=== PATIENT | male | born 1965 | race Caucasian/White ===

== ENCOUNTER 2017-06-16 05:22 | Inpatient (IN) | payer OTHER ==
[~2017-06-16] VITALS: Ht 177.8 cm; Wt 100.0 kg
--- NOTE | ~2017-06-16 | HP ---
Unit #: [id number] #: [id number] Patient: FARIBA LIU [id number] [address] [place], [place] [address] [id number] I MR#: [id number] NAME: FARIBA LIU ROOM: 323 Age: 52 Sex: M Admission Date: 06/16/2017 : 1965 Attending Physician: Donna Bertrand M.D. Primary Care Physician: Marcello Bermudez M.D. HISTORY AND PHYSICAL REASON FOR ADMISSION Intentional overdose/suicidal ideation. HISTORY OF PRESENT ILLNESS Patient is a very pleasant 52-year-old male who apparently off and on for the past several weeks has been fighting with his at home secondary to him not taking his medications, continuing to smoke and/or other marital reasons. He states he got fed up with it last night. He took as many medications as he could find, including lisinopril, Synthroid, Lipitor, Mirapex, Plavix, as well as carvedilol. He became obtunded, confused. There was questionable syncopal episode at home. Subsequently called EMS "services." The patient was brought to the hospital further evaluation. While patient was evaluated in the emergency room, he received normal saline, glucagon, "Zofran," activated charcoal, calcium chloride, as well as "Zofran." At the present time I am evaluating him in the ICU. He is sitting up, communicating in full sentences. He is currently on 4 liters of O2. He does not appear to be in acute distress. PAST MEDICAL HISTORY 1. Coronary artery disease with CABG September 2016 with valve replacement. Details are not available to me. 2. Hypertension. 3. Prior history of psychiatric history, I believe including anxiety/depression. 4. Hypothyroidism. 5. Hyperlipidemia. 6. Longstanding history of noncompliance. 7. Myocardial infarction x2. PAST SURGICAL HISTORY 1. Appendectomy. 2. Coronary artery bypass graft September 2016. 3. Valve replacement. 4. Tonsillectomy. HOME MEDICATIONS Lisinopril, Synthroid, Lipitor, Mirapex, Plavix, carvedilol. Although patient states that these are his routine home medications, he has only been taking them since May 30. Prior to that for several months he was not taking his medications secondary to cost issues, lack of followup, as well as patient stated he was not sure if he needed them. Unit #: [id number] #: [id number] Patient: FARIBA LIU ALLERGIES Tofranil, imipramine. FAMILY HISTORY Reviewed. Noncontributory. Not pertinent. SOCIAL HISTORY Positive tobacco use, ongoing. No alcohol use. Patient adamantly denies IV drug use. REVIEW OF SYSTEMS Please see HPI. Twelve-point, otherwise, negative except for those positively noted in the HPI. PHYSICAL EXAMINATION VITAL SIGNS: Temperature 98.2, pulse 68, respiratory rate 18, blood pressure 89/49 on admission. O2 sats 89% on room air. GENERAL APPEARANCE: Patient a 52-year-old male sitting up comfortably. No acute distress. HEAD EXAM: Atraumatic, normocephalic. EAR EXAM: Tympanic membranes do not reveal any erythema or injection. NECK EXAM: Supple. CVS: S1, S2 audible. No murmur heard. Regular rate and rhythm. RESPIRATORY EXAM: Coarse breath sounds are noted bilaterally. Prolonged expiration. Scattered wheezing. GI/ABDOMEN: Nontender, nondistended. LOWER EXTREMITY EXAM: No evidence of any lower extremity edema. NEUROLOGIC EXAM: Patient is A and O x3. No evidence of any focal nerve deficits. PSYCHIATRIC EXAM: Patient demonstrates normal mood and affect. DIAGNOSTIC STUDIES LABS: Initial laboratory studies show ABG - pH 7.427, pCO2 of 36, a pO2 of 87 on 6 liters. White count of 11.5, hemoglobin 15.7. CMP shows normal with exception of glucose at 141. Tylenol level negative. Salicylates negative. Alcohol level negative. Cardiac enzymes, first set, negative. INR 1.1. INITIAL IMPRESSION 1. Intentional overdose. 2. Suicidal ideation. 3. Acute hypoxic respiratory failure. 4. Presumed aspiration pneumonitis/pneumonia. 5. Coronary artery disease. 6. Prior history of coronary artery bypass graft September 2016. 7. Prior history of valve replacement. 8. Longstanding history of noncompliance with home medications. 9. Hypothyroidism. 10. Hypertension. 11. Hyperlipidemia. PLAN Admission. Patient has currently been admitted to ICU, but he can be downgraded to telemetry floor. Will place consultation to Dr. Smith of psychiatric services. For 24 hours will observe him here at [facility]. Will try to wean his O2 to room air, to which I believe was his baseline. He will receive IV Solu-Medrol, aerosols, as Unit #: [id number] #: [id number] Patient: FARIBA LIU well as Shean for aspiration pneumonia, as he is at high risk. His other routine medications will be placed on hold. His blood pressure was low. He did receive several normal saline boluses en route. Currently it is stable with his systolic hovering in the 100s to one-tens. He will be followed closely. He will be maintained on normal saline at 150 mL. He likely can be transferred or discharged to [facility] and/or further disposition as to be determined by Dr. Smith in the morning. All plans have been reviewed with patient in detail. He expresses understanding and agreement of plan as stated above. Dictated by Tani Cabrera/christen TD: 06/17/2017 15:19 JOB #: [id number] HISTORY AND PHYSICAL Page 1 of 1 X Donna Bertrand MD X HISTORY AND PHYSICAL
--- NOTE | ~2017-06-16 | CO ---
Unit #: [id number] #: [id number] Patient: FARIBA LIU [id number] [address] [place], [place] [address] [id number] I MR#: [id number] NAME: FARIBA LIU ROOM: 323 Age: 52 Sex: M Admission Date: 06/16/2017 : 1965 Attending Physician: Donna Bertrand M.D. Primary Care Physician: Marcello Bermudez M.D. Consultation Date: 06/17/2017 CONSULTATION REPORT REASON FOR CONSULTATION Intentional overdose. HISTORY OF PRESENT ILLNESS Mr. Smith is a 52-year-old white male, seen in room 323, bed 1, on 06/17/2017. The patient dressed in hospital attire, lying comfortably in bed. The patient admitted taking intentional overdose. Reported that he was trying to get help for a long period of time and had an argument and took overdose. The patient reported taking overdose with the intention to harm himself. The patient is currently on hold and has a sitter. The patient denied any use of drugs or alcohol. The patient has a history of depression. PAST PSYCHIATRIC HISTORY Remarkable for history of depression, but no treatment. PAST MEDICAL HISTORY History of coronary artery disease with CABG in 2016, valve replacement, hypertension, hypothyroidism, hyperlipidemia, history of noncompliance, myocardial infarction x2. MEDICATIONS The patient at home is on lisinopril, Synthroid, Lipitor, Mirapex, Plavix, carvedilol. ALLERGIES Tofranil and imipramine. FAMILY HISTORY AND SOCIAL HISTORY The patient reports that he lives with his , has a good support system, but having some marital conflict. Denied any use of any drugs or alcohol. No history of abuse. REVIEW OF SYSTEMS Complete review of systems is unremarkable except as mentioned above. PHYSICAL EXAMINATION VITAL SIGNS: Temperature 97.8, pulse 82, respirations 16, blood pressure 158/86, and oxygen saturation 99%. GENERAL APPEARANCE: The patient dressed casually in hospital attire, lying comfortably in bed. Attention span and concentration, fair. Speech, regular rate. Oriented in time, place, and person. Mood and affect, sad, dysphoric, labile. Thought process, goal directed. The patient denied any thoughts of harming self or others at this time, but Unit #: [id number] #: [id number] Patient: FARIBA LIU admitted intentional overdose, sad, depressed, labile. Denied any psychotic symptom. Recent and remote memory, fair. Language, intact. Fund of knowledge, fair. Insight and judgment, fair to slightly impaired. DIAGNOSES Psychiatric: Major depressive disorder, recurrent, severe, F33.2. Secondary diagnosis: Deferred. Medical diagnosis: Please refer to H and P. Stressors: Psychosocial stressors. ASSESSMENT/PLAN 1. Supportive psychotherapy and psychoeducation were provided to the patient. 2. Educated about benefits and side effects of medication and course and prognosis of illness. 3. Advised to continue with current treatment with a plan to transfer the patient to [facility] for inpatient psychiatric stabilization. Please feel free to call if any questions. . Dictated by... Tani Khan/ellen TD: 06/17/2017 23:49 JOB #: [id number] CONSULTATION REPORT Page 1 of 1 X Cm Smith MD X CONSULTATION REPORT
--- NOTE | ~2017-06-16 | DS ---
Unit #: [id number] #: [id number] Patient: FARIBA LIU [id number] [facility] [address]. [place], [place] [address] [id number] I MR#: [id number] NAME: FARIBA LIU ROOM: 323 Age: 52 Sex: M Admission Date: 06/16/2017 : 1965 Discharge Date: 06/17/2017 Attending Physician: Donna Bertrand M.D. Primary Care Physician: Marcello Bermudez M.D. DISCHARGE SUMMARY REASON FOR ADMISSION Medication overdose, suicidal intent. HISTORY OF PRESENT ILLNESS Patient a 52-year-old male, very pleasant, who apparently had got into a disagreement with his while at home, took several of his medications all at the same time, became suddenly obtunded. EMS "services" were subsequently called. Patient was brought to [facility] further evaluation. Initially his systolic blood pressure was found to be low. He was mildly respiratory compromised with hypoxia, as well as hypercapnia. Initially he was placed in ICU on O2 nasal cannula support, as well as aerosols. IV fluid resuscitation therapy was initiated. At this point in time his IV fluids have now been discontinued. His blood pressure is currently stable on no medications. He has received IV Solu-Medrol, as well as Zosyn, for consideration of possible aspiration. Dr. Smith was consulted secondary to evaluation. Per Dr. Smith's recommendation and/or note, patient has been recommended to be [facility] in regard to medication overdose. FINAL DISCHARGE DIAGNOSES 1. Medication overdose. 2. Acute hypercapnic/hypoxic respiratory failure on admission, now resolved. 3. Chronic obstructive pulmonary disease. 4. Hypertension. 5. Coronary artery disease with recent coronary artery bypass graft September 2016. 6. Prior history of valve replacement. Details unclear. 7. Longstanding history of noncompliance. 8. Ongoing tobacco abuse. DISCHARGE MEDICATIONS 1. Lipitor 40 mg p.o. q.h.s. 2. Lisinopril 2.5 mg p.o. daily. 3. Plavix 75 mg p.o. daily. 4. Synthroid 75 mcg p.o. daily. 5. Sublingual nitro as directed. 6. Augmentin 875 mg p.o. b.i.d. x10 days. Unit #: [id number] #: [id number] Patient: FARIBA LIU DISCHARGE CONDITION Stable. DISCHARGE DISPOSITION [facility]. Dictated by... Tani Cabrera/christen TD: 06/17/2017 15:40 JOB #: [id number] DISCHARGE SUMMARY Page 1 of 1 X Donna Bertrand MD X DISCHARGE SUMMARY
--- NOTE | ~2017-06-16 | CR72 ---
[facility] A Service of [facility] RADIOLOGY TEXT RESULTS PATIENT: FARIBA LIU LOCATION: [facility] : [birth year] UNIT #: [id number] AGE: [address]: Donna Bertrand MD SEX: M ORDER DR: [id number] [facility] [address] [place], [place] [address] [id number] MR#: [id number] Acc #: [id number] NAME: FARIBA LIU : 1965 SEX: M STUDY DATE/TIME: 06/16/2017 13:41 UNIT: [address] ROOM: [address] [place] [address] DESCRIPTION: CR Chest Single View Portable Attending Physician: Donna eBrtrand M.D. Ordering Physician: Donna Bertrand M.D. Primary Care Physician: Marcello Bermudez M.D. MEDICAL IMAGING REPORT This report is preliminary unless electronic signature is present EXAM Portable chest. HISTORY Shortness of air starting today. COMPARISON 02/06/2016 FINDINGS A portable view of the chest was obtained. The heart size and vascularity are normal and the lungs are clear. There is a transversely oriented metallic object superimposed upon the heart which might represent an atrial appendage device. There are sternotomy wires and coronary bypass markers present. IMPRESSION No active disease. Dictated by... Wilian Penny M.D. THIS IS AN ELECTRONICALLY VERIFIED REPORT Wilian Penny M.D. at 06/17/2017 12:43 PM MACO/albina TD: 06/17/2017 00:44 JOB #: [id number] MEDICAL IMAGING REPORT [facility] A Service [facility] RADIOLOGY TEXT RESULTS PATIENT: FARIBA LIU LOCATION: [facility] : [birth year] UNIT #: [id number] AGE: [address]: Donna Bertrand MD SEX: M ORDER DR: Page 1 of 1 COPY
--- NOTE | ~2017-06-16 | EKG ---
PATIENT: FARIBA LIU UNIT #: [id number] Ventricular Rate: 62 BPM Atrial Rate: 62 BPM P-R Interval: 158 ms QRS Duration: 98 ms Q-T Interval: 444 ms QTC Calculation(Bezet): 450 ms P [place]: 33 degrees Calculated R [place]: 50 degrees Calculated T [place]: 58 degrees Diagnosis Line: Diagnosis Line: Normal sinus rhythm Diagnosis Line: Normal ECG Diagnosis Line: When compared with ECG of 16-JUN-2017 05:59, Diagnosis Line: (unconfirmed) Diagnosis Line: No significant change was found Diagnosis Line: Confirmed by CORNELIA WHITING MD ([id number]) on 06/16/2017 Diagnosis Line: 7:56:07 PM INTERPRETING MD: JOHANNE HINSON
[~2017-06-16 05:22] MED LIST: ALBUTEROL17 GM INH; CATAFLAM50 MG PO; DEPAKOTE PO; DICLOFENAC PO; HYDROCODON-ACE1 EAC7 PO; ILOTYCIN OPTH; IMDUR PO; LIPITOR; LIPITOR PO; LISINOPRIL PO; LOPRESSOR PO; MAXZIDE 75/50 T1 TAB PO; NAPROXEN PO; NEURONTIN; NEURONTIN PO; PHENERGAN/CODEINE PO; PREDNISONE PO; PROZAC; PROZAC PO; TOPROL XL; WELLBUTRIN PO; ZITHROMAX PO
[2017-06-16 06:02] LABS: POC - CKMB 1.4 ng/mL (0.0-7.9); POC - TROPONIN <0.05 ng/mL (<=0.05)
[2017-06-16 06:06] LABS: BASOPHIL# 0.1 X10e3 (0-0.3); EOSINOPHIL# 0.6 X10e3 (0-0.7); EOSINOPHIL% 4.9 % (0.0-7.0); HEMATOCRIT 45.2 % (38.0-50.0); HEMOGLOBIN 15.7 gm/dL (13.0-16.0); LYMPHOCYTE# 2.9 X10e3 (1.0-3.5); LYMPHOCYTE% 25.7 % (17.0-45.0); MEAN CORPUSCULAR HEMOGLOBIN 31.6 PG (28-34); MEAN CORPUSCULAR HGB CONC 34.7 g/dL (30-36); MEAN PLATELET VOLUME 8.2 FL (6.5-11.5); MONOCYTE% 8.4 % (3.0-12.0); NEUTROPHIL# 6.9 X10e3 (1.5-7.1); PLATELET COUNT 217 X10e3 (140-420); RED BLOOD COUNT 4.97 X10e (3.90-5.60); WHITE BLOOD COUNT 11.5 X10e3 (4.0-10.5)
[2017-06-16 06:21] LABS: INR 1.1; PARTIAL THROMBOPLASTIN TIME 27.1 SECONDS (23.5-31.3); PROTHROMBIN TIME (PATIENT) 12.3 SECONDS (10.0-11.7)
[2017-06-16 06:26] LABS: ALBUMIN SERUM 4.1 g/dL (3.5-5.0); ALKALINE PHOSPHATASE 63 U/L (32-92); ALT (SGPT) 15 U/L (10-40); AST (SGOT) 20 U/L (10-42); BLOOD UREA NITROGEN 19 mg/dL (9-23); BUN/CREATININE RATIO 15.83; CALCIUM SERUM 9.8 mg/dL (8.4-10.2); CARBON DIOXIDE 24 mmol/L (22-31); CHLORIDE 106 mmol/L (100-111); CREATININE SERUM 1.2 mg/dL (0.6-1.4); GLOM FILT RATE Estimated 70.1 mL/min (>60); GLUCOSE FASTING 141 mg/dL (70-110); POTASSIUM 4.2 mmol/L (3.5-5.1); PROTEIN TOTAL SERUM 7.5 g/dL (6.0-8.3); SALICYLATE <4.0 mg/dL; SODIUM 140 mmol/L (135-145)
[2017-06-16 06:31] LABS: ACETAMINOPHEN <10 ug/mL; ALCOHOL BLOOD <5 mg/dL (0)
[2017-06-16 06:34] LABS: DIFF IND NO
[2017-06-16 09:15] LABS: ARTERIAL BLD GAS O2 SATURATION 94.8 % (90.0-100.0); ARTERIAL BLOOD GAS CARBOXY HB 2.4 %sat (0.0-9.0); ARTERIAL BLOOD GAS HCO3 24.2 mmol/L; ARTERIAL BLOOD GAS MET HB 0.5 %sat (0.0-2.0); ARTERIAL BLOOD GAS PCO2 36.8 mmHg (35.0-45.0); ARTERIAL BLOOD GAS PO2 87.1 mmHg (80.0-100); ARTERIAL BLOOD GAS pH 7.427 (7.350-7.450)
[2017-06-16 09:16] LABS: ARTERIAL BLOOD GAS ALLEN TEST NORMAL; ARTERIAL BLOOD GAS ART SITE RIGHT RADIAL; ARTERIAL BLOOD GAS DELIVERY NASAL CANNULA; ARTERIAL DRAW? YES
[2017-06-16 12:00] LABS: %MB 1.6 % (0.0-4.0); MB 1.6 ng/ml
[2017-06-16] MEDS ORDERED: COREG6.25 MG PO (13:45)
[2017-06-16] MEDS ORDERED: LEVOTHYROXINE75 MCG PO (13:46)
[2017-06-16] MEDS ORDERED: CLOPIDOGREL75 MG PO (13:46)
[2017-06-16] MEDS ORDERED: LISINOPRIL5 MG PO (13:46)
[2017-06-16] MEDS ORDERED: LIPITOR40 MG PO (13:47)
[2017-06-16] MEDS ORDERED: MIRAPEX0.125 MG PO (13:48)
[2017-06-16] MEDS ORDERED: NITROGLYGERIN0.4 MG SL (13:49)
[2017-06-16 18:14] LABS: MB 1.7 ng/ml
[2017-06-17 08:39] LABS: BUN/CREATININE RATIO 21.11; CALCIUM SERUM 8.6 mg/dL (8.4-10.2); CREATININE SERUM 0.9 mg/dL (0.6-1.4); GLOM FILT RATE Estimated 99.2 mL/min (>60); POTASSIUM 4.8 mmol/L (3.5-5.1)
[2017-06-17 16:26] LABS: AMPHETAMINE NEG (NEG); BARBITURATES NEG (NEG); BENZODIAZEPINES NEG (NEG); COCAINE NEG (NEG); MARIJUANA NEG (NEG); OPIATES NEG (NEG); TRICYCLIC ANTIDEPRESSANTS NEG (NEG); U METHADONE NEG (NEG)
[2017-06-28] MEDS ORDERED: HYDROXYZINE PAM25 M1 PO (19:58)
[2017-06-28] MEDS ORDERED: SARAFEM20 MG PO (19:58)
== END 2017-06-17 17:36 | DRG 917 ==
LOC: CED 05:22 → CEDOF 07:45 → CED 07:49 → CICCU3 07:49 → CEDOF 07:49 → CICCU3 08:54 → CEDOF 08:54 → CICCU3 08:54 → C3A PCU 14:47
PROVIDERS: Emergency Medicine; Family Medicine
DX: T46.4X2A Poisoning by angiotensin-converting-enzyme inhibitors, intentional self-harm, initial encounter (principal); J96.02 Acute respiratory failure with hypercapnia; J96.01 Acute respiratory failure with hypoxia; F33.2 Major depressive disorder, recurrent severe without psychotic features; T38.1X2A Poisoning by thyroid hormones and substitutes, intentional self-harm, initial encounter; T46.6X2A Poisoning by antihyperlipidemic and antiarteriosclerotic drugs, intentional self-harm, initial encounter; T42.8X2A Poisoning by antiparkinsonism drugs and other central muscle-tone depressants, intentional self-harm, initial encounter; T45.522A Poisoning by antithrombotic drugs, intentional self-harm, initial encounter; T44.7X2A Poisoning by beta-adrenoreceptor antagonists, intentional self-harm, initial encounter; I25.10 Atherosclerotic heart disease of native coronary artery without angina pectoris; Z95.1 Presence of aortocoronary bypass graft; E78.5 Hyperlipidemia, unspecified; E03.9 Hypothyroidism, unspecified; I25.2 Old myocardial infarction; Z91.19 Patient's noncompliance with other medical treatment and regimen; Z95.2 Presence of prosthetic heart valve; Z90.49 Acquired absence of other specified parts of digestive tract; Z91.14 Patient's other noncompliance with medication regimen; F17.200 Nicotine dependence, unspecified, uncomplicated
CPT/HCPCS: 36600; 71010; 80048; 80053; 80061; 80307; 82550; 82553; 82803; 82947; 83036; 84443; 84484; 85025; 85379; 85610; 85730; 93005; 94640; 94760; 96361; 96365; 96375; 99291; G0480; J0610; J1610; J2405; J2543; J2930

== ENCOUNTER 2017-06-17 14:10 | Inpatient (IN) | payer OTHER ==
[~2017-06-17] VITALS: Ht 177.8 cm; Wt 97.5 kg
--- NOTE | ~2017-06-17 | CO ---
Unit #: [id number] #: [id number] Patient: FARIBA LIU [id number] [place] [address] [id number] I MR#: [id number] NAME: FARIBA LIU ROOM: P258 Age: 52 Sex: M Admission Date: 06/17/2017 : 1965 Attending Physician: Cm Smith M.D. Primary Care Physician: Marcello Bermudez M.D. Consultation Date: 06/18/2017 CONSULTATION REPORT Elaine Smith is a 52-year-old who is admitted after an overdose of his home medications. We have been asked to review all of his medications and restart or discontinue as necessary. After reviewing his list of home medications, we will continue lisinopril 5 mg daily, Plavix 75 mg daily, Coreg 6.25 mg b.i.d., atorvastatin 40 mg daily, and levothyroxine 0.075 mg daily. The patient can follow up with primary care. Dictated by... Lana Leiva P.A.-C. for Tani Cabrera/ellen TD: 06/18/2017 18:56 JOB #: [id number] CONSULTATION REPORT Page 1 of 1 X Lana Leiva CONSULTATION REPORT
--- NOTE | ~2017-06-17 | HP ---
Unit #: [id number] #: [id number] Patient: FARIBA LIU [id number] [facility] [address] [place] [address] [id number] I MR#: [id number] NAME: FARIBA LIU ROOM: P258 Age: 52 Sex: M Admission Date: 06/17/2017 : 1965 Attending Physician: Cm Smith M.D. Admitting Physician: Cm Smith M.D. Primary Care Physician: Marcello Bermudez M.D. HISTORY AND PHYSICAL Fariba is a 52 year old admitted to [address] [place] [address] because of a polypharmacy overdose. He was admitted to [facility] on 06/16/17 and when medically stable transferred to [facility] for psychiatric care. Patient was seen and H and P dated 06/16/17 was reviewed. This is current. No changes. Please see H and P dated 06/16/17 from [facility]. Dictated by... Lana Leiva P.A.-C. for Tani Cabrera/sin TD: 06/18/2017 18:07 JOB #: [id number] HISTORY AND PHYSICAL Page 1 of 1 X Lana Leiva HISTORY AND PHYSICAL
--- NOTE | ~2017-06-17 | PA ---
Unit #: [id number] #: [id number] Patient: FARIBA LIU [id number] [facility] [address] [place] [address] [id number] I MR#: [id number] NAME: FARIBA LIU ROOM: [facility] Age: 52 Sex: M Admission Date: 06/17/2017 : 1965 Date of Assessment: 06/18/2017 Attending Physician: Cm Smith M.D. Admitting Physician: Cm Smith M.D. Primary Care Physician: Marcello Bermudez M.D. PSYCHIATRIC ASSESSMENT INFORMANTS The patient reliability, fair informant and chart reliability, good. CHIEF COMPLAINT Suicide attempt. HISTORY OF PRESENT ILLNESS Mr. Smith is a 52-year-old white male, presented with the above-mentioned complaint. The patient was initially admitted at [facility] after taking an overdose of his medication for hypertension. The patient was medically stabilized and transferred to [facility] for psychiatric stabilization. The patient reported that he was trying to get help for long time. Reported having marital issues. The patient reported that in the past he was on Prozac that helped him, but without that medication the patient reported feeling sad, depressed, feeling of hopelessness and worthlessness. Denied any homicidal ideation or psychotic symptom, but suicidal ideation, anxiety, and trouble sleeping. Needing inpatient admission at this time for psychiatric stabilization. PAST PSYCHIATRIC HISTORY Remarkable for history of previous treatment for depression. No history of any previous suicide attempt, but according to the intake reports history of inpatient multiple times in his 30s at [facility] for bipolar disorder. FAMILY HISTORY AND SOCIAL HISTORY The patient reports that he has a good support system with his spouse. The patient denied any family history of any psychiatric illness. No history of abuse. No history of any legal problem. MEDICAL HISTORY Remarkable for hypertension, COPD, and heart problem. MEDICATION HISTORY The patient is on Lipitor, lisinopril, Plavix, and Augmentin. ALLERGIES No known drug allergies. SUBSTANCE ABUSE HISTORY None. REVIEW OF SYSTEMS Unit #: [id number] #: [id number] Patient: FARIBA LIU HEENT: Eyes, clear. Ears, nose, mouth, and throat; clear. CARDIOVASCULAR: Unremarkable. RESPIRATORY: Unremarkable. GI: Unremarkable. : Unremarkable. SKIN: Unremarkable. LYMPH NODE: Unremarkable. NEUROLOGIC: Unremarkable. ENDOCRINE: Unremarkable. HEMATOLOGIC: Unremarkable. ALLERGIC/IMMUNOLOGIC: Unremarkable. MUSCULOSKELETAL: Muscle strength and tone, no atrophy or abnormal movement. Gait normal. MENTAL STATUS EXAMINATION CONSTITUTIONAL: Measurement of vital signs; temperature 98.4, heart rate 105, respiratory rate 18, and blood pressure is 151/88. GENERAL APPEARANCE: The patient dressed casually. The patient did not show any facial deformity. MUSCULOSKELETAL: Please see above. PSYCHIATRIC EXAMINATION Description of speech; regular rate, normal volume, normal articulation, coherent, and spontaneous. Description of thought process, goal directed. Description of association, intact. Description of abnormal psychotic thinking; the patient denied any hallucination or delusions, but mood lability, depression, and recent suicide attempt. Description of the patient's judgment: Concerning everyday activity, poor. Social situation, poor. Concerning psychiatric condition, poor. Complete mental status examination; oriented in time, place, and person. Recent and remote memory, fair. Language, intact. Fund of knowledge, fair. Mood and affect, labile. Insight and judgment, poor. ASSETS AND LIABILITIES Assets, the patient is articulate and able to take care of his ADL. Liability, history of depression. ADMITTING DIAGNOSES Psychiatric: Bipolar mood disorder, recurrent, severe, depressed, F31.9. Secondary diagnosis: Deferred. Medical diagnoses: History of hypertension, coronary artery disease with recent coronary artery bypass graft, chronic obstructive pulmonary disease, history of noncompliance, and history of valve replacement. Stressors: Psychosocial stressors. PSYCHIATRIC PLAN AND TREATMENT GOAL AND DISCHARGE PLAN 1. Advised to admit the patient on the inpatient unit. Provide safe, supportive, and structured environment. 2. Ordered labs; CBC, CMP, UA, and UDS. 3. Recommending at this time to start the patient on Prozac 20 mg daily, trazodone 75 mg at bedtime, Vistaril 25 mg b.i.d., and Zyprexa 5 mg at bedtime for mood stabilization. The patient to attend all the programing, group therapy, and individual therapy. If needed, consider further adjustment of medication. Treatment goal to attain euthymic mood, gain Unit #: [id number] #: [id number] Patient: FARIBA LIU insight into his problem, and learn coping skills. DISCHARGE PLAN Plan to stabilize the patient and consider followup in outpatient program. ESTIMATED LENGTH OF STAY 3 to 5 days. Dictated by... Tani Khan/ellen TD: 06/18/2017 17:43 JOB #: [id number] PSYCHIATRIC ASSESSMENT Page 1 of 1 X Cm Smith MD PSYCHIATRIC ASSESSMENT
--- NOTE | ~2017-06-17 | DS ---
Unit #: [id number] #: [id number] Patient: FARIBA LIU [id number] [facility] [address] [place] [address] [id number] I MR#: [id number] NAME: FARIBA LIU. ROOM: P258 Age: 52 Sex: M Admission Date: 06/17/2017 : 1965 Discharge Date: 06/19/2017 Attending Physician: Cm Smith M.D. Primary Care Physician: Marcello Bermudez M.D. DISCHARGE SUMMARY REASON FOR ADMISSION Depression, self-harm. DIAGNOSTIC STUDIES LABORATORY DATA: Unremarkable. HOSPITAL COURSE The patient was admitted to inpatient unit on 06/17/2017 and discharged on 06/19/2017 . The patient was treated with group therapy, individual therapy, and medication management. The patient was responsive to treatments and showed improvement. Subsequently the patient was discharged with a plan to follow up in outpatient program. DISCHARGE MEDICATIONS 1. Desyrel 50 mg at bedtime for sleep. 2. Prozac 20 mg daily for depression. 3. Vistaril 25 mg twice daily for anxiety. 4. Zyprexa 5 mg at bedtime for mood stabilization. DISCHARGE DIAGNOSES PSYCHIATRIC: Bipolar mood disorder, recurrent, severe, depressed, F31.9. SECONDARY: Deferred. MEDICAL: History of hypertension. Coronary artery disease. Chronic obstructive pulmonary disease. History of valve replacement. STRESSORS: Psychosocial stressor. FOLLOWUP CARE The patient to follow up in outpatient clinic as per social services manager. CONDITION ON DISCHARGE The patient pleasant, cooperative. Denied any psychotic symptom or any suicidal ideation. PROGNOSIS Guarded. DIET AND ACTIVITY As tolerated. Unit #: [id number] #: [id number] Patient: FARIBA LIU Dictated by... Cm Smith M.D. SZC/bzg TD: 06/20/2017 10:06 JOB #: [id number] DISCHARGE SUMMARY Page 1 of 1 X Cm Smith MD X DISCHARGE SUMMARY
[~2017-06-17 14:10] MED LIST changes: +CLOPIDOGREL75 MG PO; +COREG6.25 MG PO; +LEVOTHYROXINE75 MCG PO; +LIPITOR40 MG PO; +LISINOPRIL5 MG PO; +MIRAPEX0.125 MG PO; +NITROGLYGERIN0.4 MG SL
[2017-06-18 09:46] LABS: URINE APPEARANCE CLEAR; URINE BILIRUBIN NEG (NEG); URINE BLOOD NEG (NEG); URINE COLOR YELLOW; URINE GLUCOSE 500 MG/DL (NEG); URINE KETONE NEG (NEG); URINE LEUKOCYTE ESTERASE NEG (NEG); URINE NITRATE NEG (NEG); URINE PROTEIN NEG (NEG); URINE SPECIFIC GRAVITY 1.026 (1.003-1.035); URINE UROBILINOGEN 0.2 MG/DL (NEG)
[2017-06-18 10:03] LABS: AMPHETAMINE NEG (NEG); BARBITURATES NEG (NEG); BENZODIAZEPINES NEG (NEG); COCAINE NEG (NEG); MARIJUANA NEG (NEG); OPIATES NEG (NEG); TRICYCLIC ANTIDEPRESSANTS NEG (NEG); U METHADONE NEG (NEG)
[2017-06-28] MEDS ORDERED: SARAFEM20 MG PO (19:58)
[2017-06-28] MEDS ORDERED: HYDROXYZINE PAM25 M1 PO (19:58)
== END 2017-06-19 13:45 | disposition home or self-care (01) | DRG 885 ==
LOC: P2L 17:59
PROVIDERS: Psychiatry & Neurology Psychiatry
DX: F31.4 Bipolar disorder, current episode depressed, severe, without psychotic features (principal); R45.851 Suicidal ideations; I10 Essential (primary) hypertension; I25.10 Atherosclerotic heart disease of native coronary artery without angina pectoris; Z95.1 Presence of aortocoronary bypass graft; J44.9 Chronic obstructive pulmonary disease, unspecified; Z95.2 Presence of prosthetic heart valve; Z91.5 Personal history of self-harm
CPT/HCPCS: 36600; 71010; 80048; 80053; 80061; 80307; 81003; 82550; 82553; 82803; 82947; 83036; 84443; 84484; 85025; 85379; 85610; 85730; 87651; 93005; 94640; 94760; 96361; 96365; 96375; 99291; G0480; J0610; J1610; J2405; J2543; J2930

== ENCOUNTER 2017-06-29 14:00 | Inpatient (IN) | payer OTHER ==
[~2017-06-29] VITALS: Ht 177.8 cm; Wt 97.1 kg
--- NOTE | ~2017-06-29 | PN ---
Unit #: [id number] #: [id number] Patient: FARIBA LIU [id number] [facility] [address] [place] [address] [id number] I MR#: [id number] NAME: FARIBA LIU ROOM: P255 Age: 52 Sex: M Admission Date: 06/29/2017 : 1965 Attending Physician: Cm Smith M.D. Admitting Physician: Cm Smith M.D. Primary Care Physician: Tani Lees PROGRESS NOTES DATE OF SERVICE 06/24/2017 DISCUSSION Mr. Smith is a 52-year-old white male seen on 06/24/2017. Diagnosed with bipolar mood disorder. Patient reported sleeping poor, still feeling sad, depressed. No side effects from medication. Mood is labile. Patient denied any use of any drugs or alcohol. Reported he had a good weekend. Patient currently on carvedilol, levothyroxine, hydroxyzine, olanzapine, trazodone and atorvastatin, nitroglycerin, lisinopril, fluoxetine. Complete review of systems unremarkable. MENTAL STATUS EXAMINATION General appearance, patient dressed casually. Attention span and concentration fair. Oriented to time, place and person. Mood and affect say, dysphoric, anxious. Speech regular rate. Thought process goal directed. Patient denied any thoughts of harming self or others or any psychotic symptoms. Recent and remote memory fair. Insight and judgement fair to slightly impaired. DIAGNOSES Bipolar mood disorder recurrent severe depressed F31.9. ASSESSMENT/PLAN 1. Supportive psychotherapy, psychoeducation provided to patient. 2. Educated about benefits and side effects of medication and course and prognosis of illness. 3. Patient was given crisis line number [phone]. 4. If needed consider further adjustment of medication. Dictated by... Tani Khan/mihir TD: 06/30/2017 03:26 JOB #: [id number] Unit #: [id number] #: [id number] Patient: FARIBA LIU PROGRESS NOTES Page 1 of 1 X Cm Smith MD PROGRESS NOTE
--- NOTE | ~2017-06-29 | PN ---
Unit #: [id number] #: [id number] Patient: FARIBA LIU [id number] [facility] [address] [place] [address] [id number] MR#: [id number] NAME: FARIBA LIU. ROOM: P255 Age: 52 Sex: M Admission Date: 06/29/2017 : 1965 Attending Physician: Cm Smith M.D. Admitting Physician: Cm Smith M.D. Primary Care Physician: Tani Lees PROGRESS NOTES DATE OF SERVICE: 06/27/2017 DISCUSSION Fariba is a 52-year-old male, seen on 06/27/2017, diagnosed with bipolar mood disorder. The patient reported having symptoms of GERD and heartburn, but reports medication is helping him. Decrease in anxiety and depression, sleeping good. REVIEW OF SYSTEMS A complete review of systems is unremarkable. MENTAL STATUS EXAMINATION The patient dressed casually. Attention span and concentration, fair. Oriented in time, place, and person. Mood and affect, labile. Speech, regular rate. Thought process, goal directed. The patient denied any thoughts of harming self or others. Recent and remote memory, poor. Insight and judgment, poor. DIAGNOSES Bipolar mood disorder, not otherwise specified, F31.9. ASSESSMENT AND PLAN 1. Supportive psychotherapy and psychoeducation provided to the patient. 2. Educated about benefits and side effects of medication and course and prognosis of illness. 3. The patient was given crisis line #[id number]. 4. Advised Protonix 40 mg daily for GERD symptom. Dictated by... Tani Khan/ellen TD: 06/30/2017 16:52 JOB #: [id number] Unit #: [id number] #: [id number] Patient: FARIBA LIU SUDHEER PROGRESS NOTES Page 1 of 1 X Cm Smith MD PROGRESS NOTE
--- NOTE | ~2017-06-29 | HP ---
Unit #: [id number] #: [id number] Patient: FARIBA LIU [id number] [facility] [address] [place] [address] [id number] MR#: [id number] NAME: FARIBA LIU ROOM: P255 Age: 52 Sex: M Admission Date: 06/29/2017 : 1965 Attending Physician: Cm Smith M.D. Admitting Physician: Cm Smith M.D. Primary Care Physician: Marcello Bermudez M.D. HISTORY AND PHYSICAL HISTORY OF PRESENT ILLNESS Fariba is a 52 year old admitted to [facility] after he was found to unresponsive. He alleges a poly-pharmacy overdose. He was charcoaled in the emergency room and when medically stable transferred to [facility] for psychiatric care. He was just discharged from this facility after treatment for the same. The patient was seen and H and P dated 06/16/2017 was reviewed. This is current. No changes. Please see H & P dated 06/16/2017 from [facility]. [facility] & Lisa. Dictated by... Lana Leiva P.A.-C. for Tani Cabrera/mihir TD: 07/01/2017 00:00 JOB #: [id number] HISTORY AND PHYSICAL Page 1 of 1 X Lana Leiva HISTORY AND PHYSICAL
--- NOTE | ~2017-06-29 | PA ---
Unit #: [id number] #: [id number] Patient: FARIBA LIU [id number] [facility] [address] [place] [address] [id number] MR#: [id number] NAME: FARIBA LIU ROOM: [facility] Age: 52 Sex: M Admission Date: 06/29/2017 : 1965 Date of Assessment: Attending Physician: Cm Smith M.D. Admitting Physician: Cm Smith M.D. Primary Care Physician: Marcello Bermudez M.D. PSYCHIATRIC ASSESSMENT INFORMANTS The patient reliability, fair informant and chart reliability, good. CHIEF COMPLAINT Suicide attempt. HISTORY OF PRESENT ILLNESS Mr. Smith is a 52-year-old male, who lives at home with his , admitted after taking an overdose of multiple medication. The patient reported that he does not remember taking them all. The patient reported that he was diagnosed with bipolar mood disorder and expressed frustration with his would not talk to him and was avoiding his calls because he took pills. The patient reported intentional overdose. Denied any homicidal ideation or psychotic symptom. Needing inpatient admission at this time for psychiatric stabilization. PAST PSYCHIATRIC HISTORY Remarkable for history of previous treatment at [facility] on 06/18/2017. History of previous treatment at [facility] for bipolar disorder. FAMILY HISTORY AND SOCIAL HISTORY The patient reports he has a good support system from his spouse. Denied any family history of any psychiatric illness. No history of any abuse. No legal problem. MEDICAL HISTORY Remarkable for history of COPD, hypertension, and heart problem. MEDICATION HISTORY The patient is on Lipitor, lisinopril, Plavix, and Augmentin. ALLERGIES No known drug allergies. SUBSTANCE ABUSE HISTORY None. REVIEW OF SYSTEMS HEENT: Eyes, clear. Ears, nose, mouth, and throat; clear. CARDIOVASCULAR: Unremarkable. RESPIRATORY: Unremarkable. GI: Unremarkable. Unit #: [id number] #: [id number] Patient: FARIBA LIU : Unremarkable. SKIN: Unremarkable. LYMPH NODE: Unremarkable. NEUROLOGIC: Unremarkable. ENDOCRINE: Unremarkable. HEMATOLOGIC: Unremarkable. ALLERGIC/IMMUNOLOGIC: Unremarkable. MUSCULOSKELETAL: Muscle strength and tone, no atrophy or abnormal movement. Gait normal. MENTAL STATUS EXAMINATION CONSTITUTIONAL: Measurement of vital signs; temperature 98.0, heart rate 87, respiratory rate 20, and oxygen saturation 98%. GENERAL APPEARANCE: The patient dressed casually in hospital attire. No facial deformity noted. MUSCULOSKELETAL: Please see above. PSYCHIATRIC EXAMINATION Description of speech, rapid in rate. Description of thought process, circumstantial. Description of association, intact. Description of abnormal psychotic thinking; the patient denied any hallucination or delusions, but suicide attempt, mood labile, anxious, and nervous. Description of the patient's judgment: Concerning everyday activity, poor. Social situation, poor. Concerning psychiatric condition, poor. Complete mental status examination; oriented in time, place, and person. Recent and remote memory, fair. Attention span and concentration, fair. Language, able to name object and repeat phrases. Fund of knowledge, aware of current event and passive vocabulary intact. Mood and affect, sad and dysphoric. Insight and judgment, fair to poor. ASSETS AND LIABILITIES Assets, the patient is articulate and able to take care of his ADL. Liability, history of depression and suicide attempt. ADMITTING DIAGNOSES Psychiatric: Bipolar mood disorder, recurrent, severe, depressed, F31.9. Secondary diagnosis: Deferred. Medical diagnoses: History of hypertension, coronary artery disease with recent coronary artery bypass graft, chronic obstructive pulmonary disease, history of noncompliance, and history of valve replacement. Stressors: Psychosocial stressors. PSYCHIATRIC PLAN AND TREATMENT GOAL AND DISCHARGE PLAN 1. Advised to admit the patient on the inpatient unit. Provide safe, supportive, and structured environment. 2. Ordered labs; CBC, CMP, UA, and UDS. 3. Advised to resume the patient's Protonix, Coreg, Catapres, Zyprexa, Prozac, Desyrel, Lipitor, Mirapex, and Vistaril. We will continue to follow. The patient to attend all the programing, group therapy, individual therapy, and family therapy. Treatment goal to attain euthymic mood, gain insight into his problem, and learn coping skills. DISCHARGE PLAN Plan to stabilize the patient and consider followup in outpatient program. Unit #: [id number] #: [id number] Patient: FARIBA LIU ESTIMATED LENGTH OF STAY 5 days. Dictated by... Cm Smith M.D. KATHYA/ellen TD: 06/30/2017 16:29 JOB #: [id number] PSYCHIATRIC ASSESSMENT Page 1 of 1 X Cm Smith MD PSYCHIATRIC ASSESSMENT
[~2017-06-29 14:00] MED LIST changes: +HYDROXYZINE PAM25 M1 PO; +SARAFEM20 MG PO
[2017-06-30 10:11] LABS: BASOPHIL# 0.1 X10e3 (0-0.3); BASOPHIL% 0.7 % (0-2.5); EOSINOPHIL# 0.5 X10e3 (0-0.7); EOSINOPHIL% 4.6 % (0.0-7.0); HEMATOCRIT 46.5 % (38.0-50.0); HEMOGLOBIN 15.6 gm/dL (13.0-16.0); LYMPHOCYTE# 2.4 X10e3 (1.0-3.5); LYMPHOCYTE% 24.5 % (17.0-45.0); MEAN CELL VOLUME 92.5 FL (83-96); MEAN CORPUSCULAR HEMOGLOBIN 31.1 PG (28-34); MEAN CORPUSCULAR HGB CONC 33.6 g/dL (30-36); MEAN PLATELET VOLUME 7.8 FL (6.5-11.5); MONOCYTE# 0.9 X10e3 (0-1.0); MONOCYTE% 8.7 % (3.0-12.0); NEUTROPHIL# 6.1 X10e3 (1.5-7.1); NEUTROPHIL% 61.5 % (40-75); PLATELET COUNT 212 X10e3 (140-420); RED BLOOD COUNT 5.03 X10e (3.90-5.60); WHITE BLOOD COUNT 9.9 X10e3 (4.0-10.5)
[2017-06-30 10:14] LABS: DIFF IND NO
[2017-06-30 10:35] LABS: ALBUMIN SERUM 3.8 g/dL (3.5-5.0); BILIRUBIN,TOTAL 0.6 mg/dL (0.2-2.0); CALCIUM SERUM 9.2 mg/dL (8.4-10.2); GLOM FILT RATE Estimated 87.4 mL/min (>60); POTASSIUM 4.8 mmol/L (3.5-5.1); PROTEIN TOTAL SERUM 7.2 g/dL (6.0-8.3)
[2017-07-01 12:55] LABS: URINE APPEARANCE CLEAR; URINE BILIRUBIN NEG (NEG); URINE BLOOD NEG (NEG); URINE COLOR YELLOW; URINE GLUCOSE NEG (NEG); URINE KETONE NEG (NEG); URINE LEUKOCYTE ESTERASE NEG (NEG); URINE NITRATE NEG (NEG); URINE PH 5.5 (5-8); URINE PROTEIN NEG (NEG); URINE SPECIFIC GRAVITY 1.019 (1.003-1.035); URINE UROBILINOGEN 0.2 MG/DL (NEG)
[2017-07-01 13:17] LABS: AMPHETAMINE NEG (NEG); BARBITURATES NEG (NEG); BENZODIAZEPINES NEG (NEG); COCAINE NEG (NEG); MARIJUANA NEG (NEG); OPIATES NEG (NEG); TRICYCLIC ANTIDEPRESSANTS NEG (NEG); U METHADONE NEG (NEG)
== END 2017-07-01 17:05 | disposition home or self-care (01) | DRG 885 ==
LOC: P2L 19:04
PROVIDERS: Psychiatry & Neurology Psychiatry
DX: F31.4 Bipolar disorder, current episode depressed, severe, without psychotic features (principal); I10 Essential (primary) hypertension; I25.10 Atherosclerotic heart disease of native coronary artery without angina pectoris; J44.9 Chronic obstructive pulmonary disease, unspecified; Z95.2 Presence of prosthetic heart valve; T50.902A Poisoning by unspecified drugs, medicaments and biological substances, intentional self-harm, initial encounter; Y92.9 Unspecified place or not applicable
CPT/HCPCS: 80048; 80053; 80076; 80307; 81003; 84443; 85025; 93005; 96376; C9113; G0378; G0480